=== PATIENT | female | born 1955 | race Two or more races ===

== ENCOUNTER 2018-02-24 12:23 | Emergency (ER) | payer SELFPAY ==
[~2018-02-24] VITALS: Ht 152.4 cm; Wt 31.8 kg
[2018-02-24 12:34] VITALS: BP 200/82
[2018-02-24] MEDS ORDERED: ASPirin 81 mg TAB PO ONE (12:45)
== END 2018-02-24 13:19 | disposition left against medical advice (07) ==
LOC: ER 12:23
DX: R07.89 Other chest pain (principal); I10 Essential (primary) hypertension; Z53.29 Procedure and treatment not carried out because of patient's decision for other reasons
CPT/HCPCS: 93005; 94761